=== PATIENT | female | born 1990 | race Caucasian/White ===

== ENCOUNTER 2017-12-05 18:43 | Inpatient (IN) | payer OTHER ==
[2017-12-05] MEDS ORDERED: LR 1,000 ML IV (19:56)
[2017-12-05] MEDS: LACTATED RINGER'S 1000 ML IV (19:56)
[2017-12-05 20:15] LABS: HEMATOCRIT 40.3 % (36.0-47.0); MEAN CORPUSCULAR HEMOGLOBIN 30.2 pg (27.0-33.0); MEAN CORPUSCULAR HGB CONC 34.7 g/dl (32.0-36.5); PLATELET COUNT, AUTOMATED 191 10^3/uL (150-450); RED BLOOD COUNT 4.63 10^6/uL (4.00-5.40); RED CELL DISTRIBUTION WIDTH 13.2 % (11.5-14.5)
[2017-12-05] MEDS ORDERED: FENTANYL 2MCG/ML ROPIVACAINE 0.2% IN 0.9% NACL 200ML IVBAG As Ordered (20:28)
[2017-12-05] MEDS ORDERED: OXYTOCIN 30 UNITS IN 0.9% NaCl 500ML IV BAG (J2590) As Ordered (20:28)
[2017-12-05] MEDS ORDERED: NALOXONE INJ 0.4 MG/1 ML VIAL (J2310) IV (22:00)
[2017-12-05] MEDS ORDERED: LACTATED RINGER'S 1000 ML IV (22:00)
[2017-12-05] MEDS ORDERED: REFRIGERATOR IV KEYS XX (22:00)
[2017-12-05] MEDS ORDERED: FENTANYL/ROPIVACAINE/NACL BAG 200 ML EPIDURAL (22:00)
[2017-12-05] MEDS ORDERED: ePHEDrine SULFATE 25 MG/5 ML(5MG/ML) SYRINGE IV (22:00)
[2017-12-05] MEDS ORDERED: diphenhydrAMINE INJ 50MG/ML VIAL (J1200) IV (22:00)
[2017-12-05] MEDS ORDERED: ONDANSETRON 4MG/2ML VIAL (J2405) IV (22:00)
[2017-12-05] MEDS ORDERED: EPIDURAL COMMENT XX (22:00)
[2017-12-05] MEDS ORDERED: EPIDURAL/PCA KEYS XX (22:00)
[2017-12-05 22:02] LABS: AMPHETAMINES URINE REFLEX NEGATIVE (NEGATIVE); BARBITURATES URINE REFLEX NEGATIVE (NEGATIVE); BENZODIAZEPINES URINE REFLEX NEGATIVE (NEGATIVE); CANNABINOIDS URINE REFLEX NEGATIVE (NEGATIVE); COCAINE METABOLITE URINE REFLE NEGATIVE (NEGATIVE); METHADONE URINE REFLEX NEGATIVE (NEGATIVE); PHENCYCLIDINE URINE REFLEX NEGATIVE (NEGATIVE)
[2017-12-05 22:11] LABS: OPIATES URINE REFLEX PENDING CONFIRMATION (NEGATIVE)
[2017-12-06] MEDS ORDERED: OXYTOCIN DRIP 30 UNITS in APPROPRIATE DILUENT 1 EA IV
[2017-12-06] MEDS: CALCIUM CARBONATE 500 MG CHEW U/D PO (01:15)
[2017-12-06] MEDS: OXYTOCIN DRIP 30 UNITS in APPROPRIATE DILUENT 1 EA IV (01:47)
[2017-12-06] MEDS ORDERED: DIBUCAINE 1% OINTMENT 30GM TOP (02:00)
[2017-12-06] MEDS ORDERED: ACETAMINOPHEN 500 MG TAB PO (02:00)
[2017-12-06] MEDS ORDERED: MOM 30ML SUSPENSION UDC PO (02:00)
[2017-12-06] MEDS ORDERED: ANUSOL HC CREAM 30GM TOP (02:00)
[2017-12-06] MEDS ORDERED: DOCUSATE SODIUM 100 MG CAP PO (02:00)
[2017-12-06] MEDS ORDERED: PROMETHAZINE 25 MG TAB PO (02:00)
[2017-12-06] MEDS ORDERED: ONDANSETRON 4MG/2ML VIAL (J2405) IV (02:00)
[2017-12-06] MEDS: PRENATAL VITAMINS CHEWABLE TABLET PO (07:35)
[2017-12-07] MEDS: IBUPROFEN 800 MG TAB PO (03:00)
[2017-12-07] MEDS: PRENATAL VITAMINS CHEWABLE TABLET PO (09:23)
[2017-12-10 10:09] LABS: Codeine Positive (.); GC Codeine 1493 ng/mL (Cutoff=200); GC Morphine 568 ng/mL (Cutoff=200); Morphine Positive (.); Opiates Positive (.)
== END 2017-12-07 17:25 | disposition home or self-care (01) | DRG 775 ==
LOC: M LDO 18:43 → M OBS 12-06 04:34 → M LDI 19:52
PROVIDERS: Midwife
PROC: 10E0XZZ Delivery of Products of Conception, External Approach (ICD-10-PCS; principal; 2017-12-06)
DX: O69.82X0 Labor and delivery complicated by other cord entanglement, without compression, not applicable or unspecified (principal); Z3A.39 39 weeks gestation of pregnancy; Z37.0 Single live birth

== ENCOUNTER 2019-01-14 16:39 | Outpatient (CLI) | payer OTHER ==
[~2019-01-14] VITALS: Ht 172.7 cm; Wt 89.8 kg
[2019-01-14] VITALS (11 sets, daily range): BP systolic 115–131; BP diastolic 58–75
[~2019-01-14 16:39] MED LIST: ADVI200C5 PO; COLA100C5 PO; NUPE1OIN2 TOP; PRENCHW PO; TUMS500C PO; TYLE500T78 PO
[2019-01-14] MEDS ORDERED: ACETAMINOPHEN 500 MG TAB PO ONE (17:30)
[2019-01-14] MEDS ORDERED: LR 1,000 ML IV ONE ×2 (17:30)
[2019-01-14] MEDS ORDERED: ONDANSETRON 4MG/2ML VIAL (J2405) IV ONE (17:30)
[2019-01-14 17:58] LABS: HEMATOCRIT 41.5 % (36.0-47.0); HEMOGLOBIN 14.1 g/dl (12.0-15.5); MEAN CORPUSCULAR HEMOGLOBIN 29.3 pg (27.0-33.0); MEAN CORPUSCULAR VOLUME 86.3 fl (80.0-96.0); PLATELET COUNT, AUTOMATED 198 10^3/uL (150-450); RED BLOOD COUNT 4.81 10^6/uL (4.00-5.40); WHITE BLOOD COUNT 11.5 10^3/uL (4.0-10.0)
[2019-01-14] MEDS ORDERED: TUMS500C PO (18:04)
[2019-01-14 18:10] LABS: AMPHETAMINES URINE REFLEX NEGATIVE (NEGATIVE); BARBITURATES URINE REFLEX NEGATIVE (NEGATIVE); BENZODIAZEPINES URINE REFLEX NEGATIVE (NEGATIVE); CANNABINOIDS URINE REFLEX NEGATIVE (NEGATIVE); COCAINE METABOLITE URINE REFLE NEGATIVE (NEGATIVE); METHADONE URINE REFLEX NEGATIVE (NEGATIVE); OPIATES URINE REFLEX NEGATIVE (NEGATIVE); PHENCYCLIDINE URINE REFLEX NEGATIVE (NEGATIVE)
[2019-01-14 18:25] LABS: ALBUMIN 2.9 GM/DL (3.2-5.2); ALT/SGPT 13 U/L (12-78); BILIRUBIN,TOTAL 0.6 MG/DL (0.2-1.0); BLOOD UREA NITROGEN 10 MG/DL (7-18); CARBON DIOXIDE LEVEL 20 MEQ/L (21-32); CHLORIDE LEVEL 110 MEQ/L (98-107); CREATININE FOR GFR 0.58 MG/DL (0.55-1.30); GLOMERULAR FILTRATION RATE > 60.0 (>60); GLUCOSE, FASTING 73 MG/DL (70-100); POTASSIUM SERUM 3.4 MEQ/L (3.5-5.1); SODIUM LEVEL 140 MEQ/L (136-145); TOTAL PROTEIN 6.6 GM/DL (6.4-8.2)
--- NOTE | 2019-01-14 19:21 | NUR ---
[facility] L&D Triage Note: S: Belinda is a 27 y/o at 37+0 weeks EGA via L/9+6 week US who presented this evening to L&D triage for c/o nausea and vomiting all day and inability to keep anything down all day. She reports that she was offered anti-emetics earlier today via t-con with OB bankruptcy law specialist and refused. She also reports fatigue and exhaustion as her spouse is TDY and she has two young children to look after. She denies VB/LOF and endorses some intermittent ctx and excellent FM. She denies fevers/chills/diarrhea/urinary sx/or any sick contacts. Her was c/b closely spaced pregnancies and excessive weight gain. O: (On initial presentation) HR: 140's, RR 20, T: 99.9 GEN: A&0x3, fatigued and vomiting CV: Tachycardia PUL: CTAB ABD: relaxed uterine resting tone FHR: 180 bl with + accelerations, no deceleration, mod variability TOCO: irritability EXT: NEG homans U/A: +3 ketones labs: pending in [facility] O: (after receiving 1.5L LR bolus; Zofran 8mg; tylenol 1000mg) HR: 90's, RR: 16; T. 99.8 GEN A&Ox3, tolerating sips of clears; denies nausea CV: RRR PUL: CTAB ABD: relaxed uterine resting tone FHR: 160's with + accelerations, no decelerations, mod variability TOCO: irritability EXT: NEG homans A/P: Genoveva is a 27 y/o at 37+3 weeks with dehydration d/t nausea and vomiting today of unknown etiology likely viral. CAT II FHR with moderate variability and baseline of 160's (decreased from initial rate of 180's) since receiving IVF. No further emesis/nausea since receiving IV Zofran. Will continue to re-hydrate and assess oral tolerance of fluids. Report given to Osmel Quigley MD at 1930 for transfer of care.
[2019-01-14] MEDS ORDERED: CALCIUM CARBONATE 500 MG CHEW U/D PO ONE (20:00)
--- NOTE | 2019-01-14 20:00 | IPNPDOC ---
Text Note Date of Service The patient was seen on 01/14/19. NOTE 28 yo at 37+0 weeks gestation presented to L&D with the complaint of 24 hours of persistent nausea and vomiting, so much to the point that she could not tolerate liquids. She reports her two children were recently sick with URI symptoms and diarrhea. Belinda denies any URI symptoms, SOB, chest pain, or diarrhea. She also denies any fevers at home but she reports her children had low grade fevers. She denies any recent travel, ingestion of unusual foods, or cough. She reports she has intermittent cramps and contractions but denies anything significant. She also denies any vaginal bleeding or discharge. She endorses excellent movement. Chaperoned by L&D RN Vitals - tmax 99.8, HR initially 140s, now down to 80s-90s, normotensive General - AAOX3, sitting up in bed, NAD Chest - CTAB Abdomen - Gravid uterus, no fundal tenderness Cervix - 1/thick/high, posterior. No vaginal discharge. FHR tracing - Initial tachycardia to 180s, after IV fluids FHR came down to BL 140s and then 150s, moderate variability, +accels, no decels Bedside TAUS - Cephalic presenting infant, BPP 8/8. DANIEL 8.9cm Labs: CBC - 11.5>14.1/41.5<198 BMP - 140/3.4--110/20--10/0.58<73 UDS - negative UA - 3+ ketones Flu and RSV swab - Negative Symptoms improved significantly and then resolved after 3 liters IV fluid and IV zofran. In triage she had no vomiting and was tolerating a regular diet. status reassuring after hydration, and suspect initial tachycardia was due to profound dehydration from persistent vomiting today. Cat I FHR tracing with +accels for >2 hours after initial presentation of tachycardia. No evidence of acute bacterial infection or intra amniotic infection. Suspect viral GI syndrome as cause of symptoms. No evidence of labor. Despite Ms. Palmer's marked improvement, I did offer her admission to the hosp ital at least overnight due to the late time of her presentation and initial symptoms. Ms. Palmer however declined admission, and opted to return home where she could be more comfortable. She will follow up with me on January 16, at 0900 in the OBGYN clinic. She is to return to care sooner should she develop fevers/chills, return of vomiting, bleeding, leakage of fluid, contractions, or decreased movement. All patient questions answered. Jadon Quigley DO VS,Jacob, I+O VS, Jacob, I+O Laboratory Tests 01/14/19 17:38 Red Blood Count 4.81, Mean Corpuscular Volume 86.3, Mean Corpuscular Hemoglobin 29.3, Mean Corpuscular Hemoglobin Concent 34.0, Red Cell Distribution Width 12.8, Calcium Level 8.0 L, Aspartate Amino Transf (AST/SGOT) 14, Alanine Aminotransferase (ALT/SGPT) 13, Alkaline Phosphatase 159 H, Total Bilirubin 0.6, Total Protein 6.6, Albumin 2.9 L Vital Signs Date Time Temp Pulse Resp B/P (MAP) Pulse Ox O2 Delivery O2 Flow Rate FiO2 01/14/19 19:14 98 18 116/64 (81) 01/14/19 18:43 99.8 JADON QUIGLEY DO Jan 14, 2019 20:00
[2019-01-14 20:59] LABS: INFLUENZA A AMPLIFICATION NEGATIVE (NEGATIVE); INFLUENZA B AMPLIFICATION NEGATIVE (NEGATIVE)
== END 2019-01-14 22:45 | disposition home or self-care (01) ==
LOC: M LDO 16:39
PROVIDERS: ATTEND Advanced Practice Midwife
DX: O21.2 Late vomiting of pregnancy (principal); O26.893 Other specified pregnancy related conditions, third trimester; O99.283 Endocrine, nutritional and metabolic diseases complicating pregnancy, third trimester; E86.0 Dehydration; Z3A.37 37 weeks gestation of pregnancy
CPT/HCPCS: 59025; 76815; 80053; 80307; 85027; 87631; 96360; 96361; 96374; G0378; G0463; J2405

== ENCOUNTER 2019-02-02 17:22 | Outpatient (CLI) | payer OTHER ==
[~2019-02-02] VITALS: Ht 172.7 cm; Wt 95.1 kg
[2019-02-02 17:42] VITALS: BP 118/71
[2019-02-02] MEDS ORDERED: ZANTTAB PO (17:52)
== END 2019-02-02 19:12 | disposition home or self-care (01) ==
LOC: M LDO 17:22
PROVIDERS: ATTEND Obstetrics & Gynecology
DX: O47.1 False labor at or after 37 completed weeks of gestation (principal); Z3A.39 39 weeks gestation of pregnancy
CPT/HCPCS: 59025; G0378; G0463

== ENCOUNTER 2019-02-06 20:54 | Inpatient (IN) | payer OTHER ==
[~2019-02-06] VITALS: Ht 172.7 cm; Wt 92.7 kg
[~2019-02-06 20:54] MED LIST changes: +ZANTTAB PO
[2019-02-06 21:29] VITALS: BP 132/72
[2019-02-06] MEDS ORDERED: LR 1,000 ML IV SCH (22:37)
[2019-02-06] MEDS ORDERED: LACTATED RINGER'S 1000 ML IV STA (22:37)
[2019-02-06] MEDS ORDERED: OXYTOCIN DRIP 30 UNITS in APPROPRIATE DILUENT 1 EA IV SCH (22:45)
--- NOTE | 2019-02-06 22:57 | HPEPDOC ---
Obstetrical History & Physical General Date of Admission Feb 06, 2019 at 22:38 History of Present Illness Belinda is a 28yo with SIUP at 40w2d by lmp c/w 9wk u/s who presents with regular painful ctx. No LOF. good movement. no vaginal bleeding. Chief Complaint: Contractions, term Information Provided By: Patient Care Care: Good Care Dating Final EDC: Feb 04, 2019 Final EDC by: LMP, 1st trimester (US) Antepartum Course Diagnos(e)s Overweight (starting BMI 25.9) and excessive weight gain (35lb), short inter- interval (last delivery Nov 2017), GERD (zantac) Height (inches): 68 Pre- weight (lbs.): 170 Admission Weight (lbs.): 205 Change in Weight (lbs.): 35 Past Medical History Past Obstetrical History : Past Obstetrical History: Multigravida (Sep 2016 term 41wk F [id number] w/PPH (no transfusion), Nov 2017 term 39wk F 8lb6oz) Past Medical History Medical History Overweight Surgical History: Osteen teeth Family History Significant Family History: No pertinent family hx Social History Marital Status: Family situation: Spouse/partner home Psychosocial History: No pertinent psych hx * Smoker: non-smoker Alcohol: Denies Drugs: denies Imunizations Tdap status: current Influenza Status: current Allergies Coded Allergies: nitrofurantoin (Verified Allergy, Unknown, 02/06/19) Medications Scheduled Pnv No.118/Iron Fumarate/FA ( 19 Chewable Tablet) 1 Chw Chw, 1 CHW PO DAILY Scheduled PRN Calcium Carbonate (Tums) 500 Mg Chw, 2 TAB PO Q4H PRN for HEARTBURN Miscellaneous Medications Ranitidine Hcl (Zantac) 150 Mg Tablet, 1 TAB PO Physical Examination Physical Examination GENERAL: Alert and oriented times three. ABDOMEN: Gravid and non-tender to touch. FETUS: Is vertex (VTX) by sterile vaginal examination (SVE) EXTREMITIES: No edema Vital Signs/I&O Vital Signs Date Time Temp Pulse Resp B/P (MAP) Pulse Ox O2 Delivery O2 Flow Rate FiO2 02/06/19 21:29 97.8 82 18 132/72 (92) Pertinent Laboratoy Data Blood Type: O+ RBC Antibody Screen: Negative HIV: Negative Hepatitis B: Negative Hepatitis C: Unknown Rapid Plasma Reagin: Nonreactive Rubella: Immune Varicella: Immune Chlamydia/Gonorrhea: Negative Group B Streptococcus: Negative Glucose Tolerance Test: 73 Anatomy Ultrasound Ultrasound Date: Sep 16, 2018 Placenta Location: Posterior Normal Anatomy: Yes Placenta Previa: No Steroid Therapy Steroid Therapy: No Vaginal Examination Dilation: 4 cm Effacement: 70% Station: -2 Cervical Consistency: Soft Cervical Position: Anterior Presentation: Cephalic presentation Assessment Heart Rate (FHR): 130 Variability: Moderate Accelerations: Positive Decelerations: None Tocometer Contractions: Yes Frequency: irregular, every 3-7 min. Duration: greater than 60 seconds Strength: palpated as moderate Assessment/Plan Assessment Belinda is a 28yo with SIUP at 40w2d by lmp c/w 9wk u/s in labor with SCE 4/75/-2 and ctx q5min approx. Cephalic by SCE. Vitals wnl, exam benign. Cat I FHRT. GBS negative. course/PMhx complicated by: Overweight (starting BMI 25.9) and excessive weight gain (35lb), short inter- interval (last delivery Nov 2017), GERD (zantac) Plan Admit and orient. Core Cutter and consent. Diet: clear liquids Group B Streptococcus (GBS) negative Labs and intravenous (IV) per unit protocol. Counseled on Pitocin and augmentation of labor (IOL). Lactated Ringers (LR): Bolus 1000 mL, then at 125 mL/hr. Anticipate normal spontaneous delivery () Candidate for epidural if desired MD Zulay Chino Katrina D MD Feb 06, 2019 22:57
[2019-02-06] MEDS ORDERED: BICITRA 30ML SOLN UDC PO ONE (23:00)
[2019-02-06 23:23] LABS: HEMATOCRIT 37.8 % (36.0-47.0); HEMOGLOBIN 12.7 g/dl (12.0-15.5); MEAN CORPUSCULAR HEMOGLOBIN 29.3 pg (27.0-33.0); MEAN CORPUSCULAR HGB CONC 33.6 g/dl (32.0-36.5); MEAN CORPUSCULAR VOLUME 87.3 fl (80.0-96.0); PLATELET COUNT, AUTOMATED 186 10^3/uL (150-450); RED BLOOD COUNT 4.33 10^6/uL (4.00-5.40); WHITE BLOOD COUNT 11.9 10^3/uL (4.0-10.0)
[2019-02-06 23:48] VITALS: BP 110/60
[2019-02-07] VITALS (21 sets, daily range): BP systolic 99–136; BP diastolic 54–90
[2019-02-07] MEDS ORDERED: FENTANYL 2MCG/ML ROPIVACAINE 0.2% IN 0.9% NACL 100ML IVBAG As Ordered ONE (00:34)
[2019-02-07] MEDS ORDERED: NALOXONE INJ 0.4 MG/1 ML VIAL (J2310) IV PRN (01:45)
[2019-02-07] MEDS ORDERED: diphenhydrAMINE INJ 50MG/ML VIAL (J1200) IV PRN (01:45)
[2019-02-07] MEDS ORDERED: EPIDURAL COMMENT XX SCH (01:45)
[2019-02-07] MEDS ORDERED: REFRIGERATOR IV KEYS XX PRN (01:45)
[2019-02-07] MEDS ORDERED: EPIDURAL/PCA KEYS XX PRN (01:45)
[2019-02-07] MEDS ORDERED: ePHEDrine SULFATE 25 MG/5 ML(5MG/ML) SYRINGE IV PRN (01:45)
[2019-02-07] MEDS ORDERED: FENTANYL/ROPIVACAINE/NACL BAG 100 ML EPIDURAL SCH (01:45)
[2019-02-07] MEDS ORDERED: ONDANSETRON 4MG/2ML VIAL (J2405) IV PRN (01:45)
[2019-02-07] MEDS ORDERED: OXYTOCIN DRIP 30 UNITS in APPROPRIATE DILUENT 1 EA IV SCH ×2 (02:53→03:53)
[2019-02-07 02:56] LABS: CORD GAS ABE V -3.9; CORD GAS HCO3 V 21.6 MEQ/L; CORD GAS O2 SAT V 74.8 %; CORD GAS PH V 7.34 UNITS; CORD GAS PO2 V 32.7 mmHg; CORD GAS SBC V 20.7 MEQ/L; CORD GAS TCO2 V 22.9 MEQ/L
[2019-02-07] MEDS ORDERED: ACETAMINOPHEN 500 MG TAB PO PRN (03:00)
[2019-02-07] MEDS ORDERED: DIBUCAINE 1% OINTMENT 30GM TOP PRN (03:00)
[2019-02-07] MEDS ORDERED: DOCUSATE SODIUM 100 MG CAP PO PRN (03:00)
[2019-02-07] MEDS ORDERED: RHOGAM 300 MCG (1500 IU) INJ (J2790) IM SCH (03:00)
[2019-02-07] MEDS ORDERED: MEASLES,MUMPS,RUBELLA VACCINE INJ (MMR-II) (90707) SC SCH (03:00)
--- NOTE | 2019-02-07 03:17 | DNPDOC ---
[facility] Delivery Note Delivery Note DATE OF DELIVERY: 07 February 2019 PREDELIVERY DIAGNOSIS: 40w3d gestation and labor. POST DELIVERY DIAGNOSIS: Delivered. PROCEDURE: Spontaneous vaginal delivery DIESEL ENGINE MECHANIC APPRENTICE: Dr. Kim Biswas MD ANESTHESIA: epidural ESTIMATED BLOOD LOSS: 300 mL. FINDINGS: 8 pound 8 ounce (3860g) female , Score 8/9, nuchal cord times 2, venous cord gas pH 7.34 BE -3.9 DELIVERY SUMMARY: Belinda is a 28yo [id number] s/p uncomplicated at 40w3d after presenting in latent labor and having pitocin augmentation, delivering at 02:38 on 07 February 2019. She received an epidural and very rapidly progressed, had SROM that appeared clear, and began pushing immediately since she was C/C/0 and FHR had dipped down to 60's. Patient pushed extremely well, such that head then rapidly delivered OA, restituted KWASI. There was tight nuchal cord not reducible at that time. Right anterior shoulder delivered easily followed by posterior shoulder and corpus, and then at that point I immediately unwrapped the tight nuchal cord that was wrapped once around the neck and once around the arm- also noted at that time was moderate and terminal meconium. Infant was vigorous with spontaneous cry, placed on maternal abdomen. Nose and mouth were suctioned with bulb suction, apgars 8/9. Cord clamped x2 and cut by FOB. Baby then taken to warmer for further suctioning. Cord blood obtained for MBT O positive and venous cord blood obtained (could not obtain arterial). Uterine massage performed, traction on the umbilical cord, placenta delivered spontaneously and intact with 3 vessel centrally inserted cord. IV pitocin was given per protocol, bimanual massage was performed and uterus then firm at u-2cm. Inspection of perineum and vagina revealed no lacerations. All counts correct x2. Total hemostasis assured. Mom and infant were doing well when I left the room. MD Zulay Chino Katrina D MD Feb 07, 2019 03:17
[2019-02-07] MEDS ORDERED: miSOPROStol 200 MCG TAB (S0191) As Ordered ONE (03:49)
[2019-02-07] MEDS ORDERED: METHYLERGONOVINE MALEATE 0.2 MG/ML VIAL (J2210) As Ordered ONE (03:49)
[2019-02-07] MEDS ORDERED: OXYTOCIN 30 UNITS IN 0.9% NaCl 500ML IV BAG (J2590) As Ordered ONE (03:51)
--- NOTE | 2019-02-07 03:58 | IPNPDOC ---
Text Note Date of Service The patient was seen on 02/07/19. NOTE Bleeding I was called to the room for some extra vaginal bleeding. Delivery was approx 1 hour prior. Lower uterine sweep performed to retrieve blood clot, total of blood on chucks plus clot approx 100ml EBL (EBL at time of delivery was 300ml so this is total of 400ml). Uterus was firm at u-2cm, bimanual massage performed. 800mcg cytotec placed rectally. RN administered 0.2mg IM methergine x1. Patient will also be given 1 more bag of pitocin, 30 units. Vitals wnl, patient still comfortable with epidural. Will continue to closely observe. Dr. Kim Biswas MD A-FIB/CHADSVASC A-FIB History Current/History of A-Fib/PAF?: No Current Oral Anticoagulant The: No VS,Fishbone, I+O VS, Fishbone, I+O Laboratory Tests 02/06/19 23:15 Red Blood Count 4.33, Mean Corpuscular Volume 87.3, Mean Corpuscular Hemoglobin 29.3, Mean Corpuscular Hemoglobin Concent 33.6, Red Cell Distribution Width 13.2 Vital Signs Date Time Temp Pulse Resp B/P (MAP) Pulse Ox O2 Delivery O2 Flow Rate FiO2 02/06/19 21:29 97.8 82 18 132/72 (92) I&O- Last 24 Hours up to 6 AM 02/07/19 06:00 Output Total 300 ml Balance -300 ml Kim Biswas MD Feb 07, 2019 03:58
[2019-02-07] MEDS ORDERED: METHYLERGONOVINE MALEATE 0.2 MG/ML VIAL (J2210) IM ONE (04:00)
[2019-02-07] MEDS ORDERED: miSOPROStol 200 MCG TAB (S0191) PR ONE (04:00)
[2019-02-07] MEDS: PRENATAL VITAMINS CHEWABLE TABLET PO SCH (08:32)
[2019-02-07] MEDS: IBUPROFEN 800 MG TAB PO PRN (15:09)
[2019-02-08] MEDS: IBUPROFEN 800 MG TAB PO PRN (02:53)
[2019-02-08 06:27] VITALS: BP 100/57
[2019-02-08] MEDS: PRENATAL VITAMINS CHEWABLE TABLET PO SCH (08:22)
--- NOTE | 2019-02-08 08:38 | DS.PDOC ---
Discharge Summary General Date of Admission Feb 06, 2019 at 22:38 Date of Discharge Feb 08, 2019 Discharge Summary HOSPITAL COURSE: Ms. Palmer is a 28 yo G3 now P3 who underwent an uncomplicated on 07Feb2019 in the air brake mechanic hours after being admitted for active labor. Her course has been unremarkable. On her day of discharge she met all appropriate discharge criteria. She was ambulating, voiding, tolerating a regular diet, had minimal lochia, and had minimal pain. DISCHARGE MEDICATIONS: Please see below. ALLERGIES: Please see below. PHYSICAL EXAMINATION ON DISCHARGE: VITAL SIGNS: Please see below. GENERAL: AAOX3, sitting up in bed, NAD ABDOMINAL EXAMINATION: Fundus firm at U-2. No fundal tenderness. EXTREMITIES: No edema PSYCHIATRIC EXAMINATION: Affect appropriate ACTIVITY: Pelvic rest for 6 weeks DIET: Regular DISCHARGE PLAN: Discharge home on 08Feb2019 DISPOSITION: DC home. DISCHARGE INSTRUCTIONS: 1. Pelvic rest for 6 weeks. ITEMS TO FOLLOWUP ON ON OUTPATIENT: 1. appointment in 6 weeks. DISCHARGE CONDITION: Stable. TIME SPENT ON DISCHARGE: Greater than 20 minutes. Carley Quigley DO Vital Signs/I&Os Vital Signs Date Time Temp Pulse Resp B/P (MAP) Pulse Ox O2 Delivery O2 Flow Rate FiO2 02/08/19 06:27 98.0 99 18 100/57 (71) I&O- Last 24 Hours up to 6 AM 02/08/19 06:00 Output Total 1600 ml Balance -1600 ml Discharge Medications Scheduled Pnv No.118/Iron Fumarate/FA ( 19 Chewable Tablet) 1 Chw Chw, 1 CHW PO DAILY, (Reported) Scheduled PRN Calcium Carbonate (Tums) 500 Mg Chw, 2 TAB PO Q4H PRN for HEARTBURN, (Reported) Miscellaneous Medications Ranitidine Hcl (Zantac) 150 Mg Tablet, 1 TAB PO, (Reported) Allergies Coded Allergies: nitrofurantoin (Verified Allergy, Unknown, 02/06/19) CARLEY QUIGLEY DO Feb 08, 2019 08:38
[2019-02-08] MEDS ORDERED: COLA100C5 PO (10:23)
[2019-02-08] MEDS ORDERED: ACET-683 PO (10:23)
[2019-02-08] MEDS ORDERED: MOTR200T44 PO (10:23)
== END 2019-02-08 13:55 | disposition home or self-care (01) | DRG 807 ==
LOC: M LDO 20:54 → M LDI 22:38 → M OBS 02-07 07:04
PROVIDERS: ADMIT Obstetrics & Gynecology; ATTEND Obstetrics & Gynecology
PROC: 10E0XZZ Delivery of Products of Conception, External Approach (ICD-10-PCS; principal; 2019-02-07)
DX: O48.0 Post-term pregnancy (principal); Z37.0 Single live birth; Z3A.40 40 weeks gestation of pregnancy; O26.03 Excessive weight gain in pregnancy, third trimester; O69.1XX0 Labor and delivery complicated by cord around neck, with compression, not applicable or unspecified; O69.2XX0 Labor and delivery complicated by other cord entanglement, with compression, not applicable or unspecified

== ENCOUNTER 2019-04-10 11:40 | Emergency (ER) | payer OTHER ==
[~2019-04-10] VITALS: Ht 172.7 cm; Wt 79.5 kg
[~2019-04-10 11:40] MED LIST changes: +ACET-683 PO; +MOTR200T44 PO; +ZANT150T40 PO; -ZANTTAB PO
[2019-04-10 11:41] VITALS: BP 102/65
[2019-04-10] MEDS ORDERED: IBUP-1114 PO (11:52)
== END 2019-04-10 12:29 | disposition home or self-care (01) ==
LOC: M ED 11:40
DX: S93.602A Unspecified sprain of left foot, initial encounter (principal); X50.9XXA Other and unspecified overexertion or strenuous movements or postures, initial encounter; Y92.018 Other place in single-family (private) house as the place of occurrence of the external cause; Z88.8 Allergy status to other drugs, medicaments and biological substances